=== PATIENT | male | born 1980 | race Two or more races ===

== ENCOUNTER 2017-09-10 19:45 | Emergency (ER) | payer MEDICAID ==
[~2017-09-10] VITALS: Ht 167.6 cm; Wt 72.6 kg
[2017-09-10 23:25] VITALS: BP 125/72
[2017-09-10] MEDS ORDERED: LIDOCAINE 1% (LOCAL ANESTH.) PF 5ml SDV ONE (23:44)
[2017-09-10] MEDS ORDERED: TETANUS-DIPTH-ACEL PERTUSSIS 0.5ML SYRG IM ONE (23:45)
[2017-09-10] MEDS ORDERED: HYDROcodone-ACET 10/325MG TAB PO ONE (23:45)
[2017-09-10] MEDS ORDERED: cefTRIAXone SOD 1,000 MG VL IM ONE (23:45)
[2017-09-11] MEDS ORDERED: LIDOCAINE 1% (LOCAL ANESTH.) PF 5ml SDV IJ ONE
== END 2017-09-11 02:04 | disposition home or self-care (01) ==
LOC: ER 19:45 → EDBD 19:45 → ER 09-11 02:04
DX: S91.031A Puncture wound without foreign body, right ankle, initial encounter (principal); S91.032A Puncture wound without foreign body, left ankle, initial encounter; F17.210 Nicotine dependence, cigarettes, uncomplicated; F12.10 Cannabis abuse, uncomplicated; W54.0XXA Bitten by dog, initial encounter; Y93.89 Activity, other specified; Y99.8 Other external cause status; Y92.009 Unspecified place in unspecified non-institutional (private) residence as the place of occurrence of the external cause
CPT/HCPCS: 90471; 90715; 96372; 99284; J0696